=== PATIENT | female | born 1990 | race Caucasian/White ===

== ENCOUNTER → 2016-09-11 | Outpatient (CLI) | payer OTHER ==
[~2016-09-11] MED LIST: ISOVUE-370 76% 100ML VIAL (Q9967) As Ordered ONE
--- NOTE | 2016-09-11 15:05 | REP ---
Clinical: Infertility. Technique: Real time fluoroscopic images in conjunction with PRINTER ASSISTANT. Findings: Uterine contour suggests complete bicornuate uterus. The bilateral fallopian tubes are normal in appearance and patency with normal contrast extravasation into the pelvis. Total fluoroscopic time 43 seconds. Impression: Bicornuate uterus. Normal patent bilateral fallopian tubes. Signed by Nikolai Miles MD 09/11/2016 02:56 P
== END | disposition home or self-care (01) ==
LOC: M RADPRO 12:29
PROVIDERS: ATTEND Obstetrics & Gynecology
DX: Q51.3 Bicornate uterus (principal)
CPT/HCPCS: 58340; 74740; Q9967

== ENCOUNTER 2016-10-14 09:25 | Emergency (ER) | payer OTHER ==
[2016-10-14] MEDS ORDERED: ALBUTEROL 90 MCG/ACT 8GM HFA INHALER As Ordered ONE (10:58)
--- NOTE | 2016-10-14 11:00 | REP ---
TWO VIEW CHEST: COMPARISON: 03/18/2015. There is no evidence of acute infiltrate. No pleural effusion is seen. The heart is normal in size. The mediastinal silhouette is unremarkable. The visualized osseous structures are intact. IMPRESSION: No acute pulmonary disease. Signed by Rinku Black MD 10/14/2016 02:17 P
--- NOTE | 2016-10-14 12:21 | EDDOCDS ---
Nurse's Notes [facility] Name: Rosalva Jean Age: 25 yrs Sex: Female : 1990 Arrival Date: 10/14/2016 Time: 09:25 Bed TR7 Private MD: Nghia [facility] [place] Diagnosis: Acute bronchospasm-possible exercise induced asthma Presentation: 10/14 09:33 Presenting complaint: Patient states: Pt presents with feeling SOB onset yesterday dls after working out in the gym No apparent distress dry cough. Adult Sepsis Screening: The patient does not have new or worsening altered mentation. Patient's respiratory rate is less than 22. Systolic blood pressure is greater than 100. Patient has a qSOFA score of 0- Negative Sepsis Screen. Suicide/Homicide risk assessment- the patient denies having any suicidal and/or homicidal ideations and does not present with any other emotional, behavioral or mental health complaints. Status: The patient is a dependent. Transition of care: patient was not received from another setting of care. 09:33 Acuity: MENDY Level 4 dls 09:33 Method Of Arrival: Walkin/Carried/Asstd dls Triage Assessment: 09:37 General: Appears in no apparent distress, slender, well developed, well nourished, well dls groomed, Behavior is cooperative. Pain: Pain currently is 2 out of 10 on a pain scale. HIV screening NA for this visit Offered previously. 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 topiramine 100mg daily 2. Vitamin Oral tab 1 tab once daily - PMHx: Seizure Disorder; - PSHx: LEEP Procedure; Tonsillectomy; D & C; - Social history: Smoking status: Patient uses tobacco products, light tobacco smoker. No barriers to communication noted, The patient speaks fluent Egyptian. - : The pt / caregiver states he / she is not on anticoagulants. Home medication list is obtained from the patient. - Exposure Risk Screening:: None identified. Assessment: 11:00 General: Appears in no apparent distress, Behavior is cooperative. Neurological: Level mk4 of Consciousness is awake, alert. Cardiovascular: No deficits noted. Respiratory: No deficits noted. Airway is patent Respiratory effort is even, unlabored, Respiratory pattern is regular. Derm: Skin is intact, is healthy with good turgor. 12:11 General: Appears in no apparent distress, comfortable, Behavior is cooperative. mk4 Neurological: Level of Consciousness is awake, alert. Vital Signs: 09:27 BP 115 / 67; Pulse 71; Resp 18; Temp 97.6(O); Pulse Ox 100% on R/A; Weight 51.71 kg ct3 (R); Height 62 in. (157.48 cm) (R); Pain 3/10; 12:19 BP 108 / 73; Pulse 52; Resp 18; Pulse Ox 98% on R/A; mk4 09:27 Body Mass Index 20.85 (51.71 kg, 157.48 cm) ct3 Vitals: 09:27 Log In Time: October 14, 2016 at 09:25. ct3 ED Course: 09:26 Patient visited by Samira Guerrero PCA. ct3 09:26 Patient moved to Waiting ct3 09:27 Nghia [facility] [place] is Private Physician. ct3 09:28 Patient moved to Pre RCE ct3 09:35 Triage Initiated dls 09:49 Patient moved to Triage 1 kcs 10:06 Tamir Mayes PA-C is PHCP. ar2 10:06 Francisca Hamilton MD is Attending Physician. ar2 10:15 Patient visited by Tamir Mayes PA-C. ar2 10:58 D-Dimer Quant Sent. kcs 11:10 Patient moved to TR2 kcs 11:16 Chest, 2 View (pa\E\lat) Returned. EDMS 11:23 Patient name changed from Rosalva\S\Hanna\S\Tripple\S\ to Rosalva\S\Hanna\S\Chuchoisner. EDMS 11:48 [facility] Payment Agreement was scanned into [employer] and attached to record. lg 11:50 Patient moved to PR1 / 25 mk4 11:54 Patient visited by Jacque Morrissey RN. mk4 12:04 Nghia [facility] [place] is Referral Physician. ar2 12:19 Patient moved to TR7 mk4 Administered Medications: 11:06 Drug: Ventolin 2 puffs [Ventolin HFA 90 mcg/actuation aerosol inhaler (2 puffs)] Route: js11 Inhalation; RT: 11:06 Initial MDI Given. Patient was instructed and evaluated on procedure Patient tolerated js11 procedure well without adverse effect Spacer used Number of puffs given: 2. Order Results: Lab Order: D-Dimer Quant; SPEC'M 10/14/16 10:57 Test: D-DIMER QUANT; Value: 246.4; Range: <500; Units: ng/ml; Status: F Radiology Order: Chest, 2 View (pa\E\lat) Test: Chest, 2 View (pa\E\lat) REASON FOR EXAMINATION: sob; TWO VIEW CHEST:; ; COMPARISON: 03/18/2015.; ; There is no evidence of acute infiltrate.; No pleural effusion is seen.; The heart is normal in size.; The mediastinal silhouette is unremarkable.; The visualized osseous structures are intact.; ; IMPRESSION:; No acute pulmonary disease.; ; Unreviewed; Outcome: 12:05 Discharge ordered by Provider. ar2 12:20 Patient left the ED. mk4 12:20 Discharge Assessment: Patient awake, alert and oriented x 3. No cognitive and/or mk4 functional deficits noted. Patient verbalized understanding of disposition instructions. Patient awake and alert. patient administered narcotics - no. The following High Risk Discharge criteria are identified: None. Condition: good Condition: stable. No special radiology studies were completed. Property sent home with patient. Signatures: Dispatcher [employer] Kathrine Ga, RN Reema Mckeon RN RN dls Ganter, LoriLee, Dharmesh Reg lg Tamir Mayes, PAErnesto PAErnesto ar2 Samira Guerrero, PRICER PRICER ct3 Foreign Blackwell js11 Jacque Morrissey RN RN mk4 MTDD
--- NOTE | 2016-10-14 12:21 | EDDOCDS ---
Physician Documentation [facility] Name: Rosalva Jean Age: 25 yrs Sex: Female : 1990 Arrival Date: 10/14/2016 Time: 09:25 Bed TR7 Private MD: WOODY Agrawal Disposition: 10/14/16 12:05 Discharged to Home/Self Care. Impression: Acute bronchospasm - possible exercise induced asthma. - Condition is Stable. - Discharge Instructions: Asthma, Adult, Bronchospasm, Adult, Metered Dose Inhaler with Spacer. - Prescriptions for Prednisone 20 mg Oral Tablet - take 2 tablet by ORAL route once daily for 5 days; 10 tablet. - Medication Reconciliation, Local Pharmacy Hours form. - Follow up: WOODY Agrawal; When: 1 - 2 days; Reason: Recheck today's complaints. Follow up: Emergency Department; When: As needed; Reason: Trouble breathing, Worsening of conditions. - Problem is new. - Symptoms are unchanged. Historical: - Allergies: PENICILLINS; Keflex; - Home Meds: 1. topiramine 100mg daily 2. Vitamin Oral tab 1 tab once daily - PMHx: Seizure Disorder; - PSHx: LEEP Procedure; Tonsillectomy; D & C; - Social history: Smoking status: Patient uses tobacco products, light tobacco smoker. No barriers to communication noted, The patient speaks fluent Moldovan. - : The pt / caregiver states he / she is not on anticoagulants. Home medication list is obtained from the patient. - Exposure Risk Screening:: None identified. 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 (157.48 cm) (R); Pain 3/10; 12:19 BP 108 / 73; Pulse 52; Resp 18; Pulse Ox 98% on R/A; mk4 09:27 Body Mass Index 20.85 (51.71 kg, 157.48 cm) ct3 MDM: 10:25 Ventolin Inhaler 2 puffs Inhalation once ordered. ar2 10:25 MDI teaching with Spacer ordered. ar2 10:26 Chest, 2 View (pa\E\lat) Ordered. EDMS 10:26 D-Dimer Quant Ordered. EDMS 10:27 ECG WITH READING ER PHYS+CARDIAG ordered. EDMS 11:09 Financial registration complete. lg 11:48 [facility] Payment Agreement was scanned into [employer] and attached to record. lg 11:55 D-Dimer Quant Reviewed. ar2 11:55 Chest, 2 View (pa\E\lat) Reviewed. ar2 Administered Medications: 11:06 Drug: Ventolin 2 puffs [Ventolin HFA 90 mcg/actuation aerosol inhaler (2 puffs)] Route: js11 Inhalation; Signatures: Dispatcher [employer] EDMS Reema Trejo, DASIA RN dls Guido Graham, Dharmesh Reg lg Tamir Mayes PA-C PAErnesto ar2 Jacque Morrissey RN RN 4 Foreign Blackwell js11 The chart was reviewed and I authenticate all verbal orders and agree with the evaluation and treatment provided.Attachments: 11:48 [facility] Payment Agreement lg MTDD
--- NOTE | 2016-10-15 07:53 | ECGEPIP ---
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 Order Number: [id number] Reading MD: Daniela Wasserman Measurements Intervals Mittie Rate: 66 P: 74 IN: 126 QRS: 78 QRSD: 74 T: 44 QT: 413 QTc: 436 Interpretive Statements SINUS RHYTHM WITH SINUS ARRHYTHMIA NO PRIOR FOR COMPARISON Electronically Signed On 10-15-2016 7:53:24 EST by Daniela Wasserman
--- NOTE | 2016-10-16 13:20 | EDDOCDS ---
Physician Documentation [facility] Name: Rosalva Jean Age: 25 yrs Sex: Female : 1990 Arrival Date: 10/14/2016 Time: 09:25 Bed TR7 Private MD: WOODY Agrawal Disposition: 10/14/16 12:05 Discharged to Home/Self Care. Impression: Acute bronchospasm - possible exercise induced asthma. - Condition is Stable. - Discharge Instructions: Asthma, Adult, Bronchospasm, Adult, Metered Dose Inhaler with Spacer. - Prescriptions for Prednisone 20 mg Oral Tablet - take 2 tablet by ORAL route once daily for 5 days; 10 tablet. - Medication Reconciliation, Local Pharmacy Hours form. - Follow up: WOODY Agrawal; When: 1 - 2 days; Reason: Recheck today's complaints. Follow up: Emergency Department; When: As needed; Reason: Trouble breathing, Worsening of conditions. - Problem is new. - Symptoms are unchanged. Historical: - Allergies: PENICILLINS; Keflex; - Home Meds: 1. topiramine 100mg daily 2. Vitamin Oral tab 1 tab once daily - PMHx: Seizure Disorder; - PSHx: LEEP Procedure; Tonsillectomy; D & C; - Social history: Smoking status: Patient uses tobacco products, light tobacco smoker. No barriers to communication noted, The patient speaks fluent Djiboutian. - Family history: Not pertinent. - : The pt / caregiver states he / she is not on anticoagulants. Home medication list is obtained from the patient. - Exposure Risk Screening:: None identified. 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 (157.48 cm) (R); Pain 3/10; 12:19 BP 108 / 73; Pulse 52; Resp 18; Pulse Ox 98% on R/A; mk4 09:27 Body Mass Index 20.85 (51.71 kg, 157.48 cm) ct3 MDM: 10:25 Ventolin Inhaler 2 puffs Inhalation once ordered. ar2 10:25 MDI teaching with Spacer ordered. ar2 10:26 Chest, 2 View (pa\E\lat) Ordered. EDMS 10:26 D-Dimer Quant Ordered. EDMS 10:27 ECG WITH READING ER PHYS+CARDIAG ordered. EDMS 11:09 Financial registration complete. lg 11:48 [facility] Payment Agreement was scanned into [employer] and attached to record. lg 11:55 D-Dimer Quant Reviewed. ar2 11:55 Chest, 2 View (pa\E\lat) Reviewed. ar2 10/15 10:46 T-Sheet-- Draft Copy was scanned into [employer] and attached to record. gb 10:46 ECG/EKG was scanned into [employer] and attached to record. gb 10:46 Radiology Report was scanned into [employer] and attached to record. gb Administered Medications: 10/14 11:06 Drug: Ventolin 2 puffs [Ventolin HFA 90 mcg/actuation aerosol inhaler (2 puffs)] Route: js11 Inhalation; Signatures: Dispatcher [employer] EDMS Reema Trejo, RN RN dls Gladis Perez, Reg Reg gb Guido Graham, Reg Reg lg Tamir Mayes, ALEJANDRO PA-C ar2 Jacque Morrissey RN RN mk4 Foreign Blackwell js11 The chart was reviewed and I authenticate all verbal orders and agree with the evaluation and treatment provided.Attachments: 11:48 [facility] Payment Agreement lg 10/15 10:46 T-Sheet-- Draft Copy gb 10:46 ECG/EKG gb Chart Complete MTDD
--- NOTE | 2016-10-16 13:20 | EDDOCDS ---
Physician Documentation [facility] Name: Rosalva Jean Age: 25 yrs Sex: Female : 1990 Arrival Date: 10/14/2016 Time: 09:25 Bed TR7 Private MD: WOODY Agrawal Disposition: 10/14/16 12:05 Discharged to Home/Self Care. Impression: Acute bronchospasm - possible exercise induced asthma. - Condition is Stable. - Discharge Instructions: Asthma, Adult, Bronchospasm, Adult, Metered Dose Inhaler with Spacer. - Prescriptions for Prednisone 20 mg Oral Tablet - take 2 tablet by ORAL route once daily for 5 days; 10 tablet. - Medication Reconciliation, Local Pharmacy Hours form. - Follow up: WOODY Agrawal; When: 1 - 2 days; Reason: Recheck today's complaints. Follow up: Emergency Department; When: As needed; Reason: Trouble breathing, Worsening of conditions. - Problem is new. - Symptoms are unchanged. Historical: - Allergies: PENICILLINS; Keflex; - Home Meds: 1. topiramine 100mg daily 2. Vitamin Oral tab 1 tab once daily - PMHx: Seizure Disorder; - PSHx: LEEP Procedure; Tonsillectomy; D & C; - Social history: Smoking status: Patient uses tobacco products, light tobacco smoker. No barriers to communication noted, The patient speaks fluent Cape Verdean. - Family history: Not pertinent. - : The pt / caregiver states he / she is not on anticoagulants. Home medication list is obtained from the patient. - Exposure Risk Screening:: None identified. 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 (157.48 cm) (R); Pain 3/10; 12:19 BP 108 / 73; Pulse 52; Resp 18; Pulse Ox 98% on R/A; mk4 09:27 Body Mass Index 20.85 (51.71 kg, 157.48 cm) ct3 MDM: 10:25 Ventolin Inhaler 2 puffs Inhalation once ordered. ar2 10:25 MDI teaching with Spacer ordered. ar2 10:26 Chest, 2 View (pa\E\lat) Ordered. EDMS 10:26 D-Dimer Quant Ordered. EDMS 10:27 ECG WITH READING ER PHYS+CARDIAG ordered. EDMS 11:09 Financial registration complete. lg 11:48 [facility] Payment Agreement was scanned into [employer] and attached to record. lg 11:55 D-Dimer Quant Reviewed. ar2 11:55 Chest, 2 View (pa\E\lat) Reviewed. ar2 10/15 10:46 T-Sheet-- Draft Copy was scanned into [employer] and attached to record. gb 10:46 ECG/EKG was scanned into [employer] and attached to record. gb 10:46 Radiology Report was scanned into [employer] and attached to record. gb Administered Medications: 10/14 11:06 Drug: Ventolin 2 puffs [Ventolin HFA 90 mcg/actuation aerosol inhaler (2 puffs)] Route: js11 Inhalation; Signatures: Dispatcher [employer] EDMS Reema Trejo, RN RN dls Gladis Perez, Reg Reg gb Guido Graham, Reg Reg lg Tamir Mayes, ALEJANDRO PA-C ar2 Jacque Morrissey RN RN mk4 Foreign Blackwell js11 The chart was reviewed and I authenticate all verbal orders and agree with the evaluation and treatment provided.Attachments: 11:48 [facility] Payment Agreement lg 10/15 10:46 T-Sheet-- Draft Copy gb 10:46 ECG/EKG gb Chart Complete MTDD
--- NOTE | 2016-10-16 13:21 | EDDOCDS ---
Nurse's Notes [facility] Name: Ameena Macdonald Age: 25 yrs Sex: Female : 1990 Arrival Date: 10/14/2016 Time: 09:25 Bed TR7 Private MD: [place] [facility] [place]: Acute bronchospasm-possible exercise induced asthma Presentation: 10/14 09:33 Presenting complaint: Patient states: Pt presents with feeling SOB onset yesterday dls after working out in the gym No apparent distress dry cough. Adult Sepsis Screening: The patient does not have new or worsening altered mentation. Patient's respiratory rate is less than 22. Systolic blood pressure is greater than 100. Patient has a qSOFA score of 0- Negative Sepsis Screen. Suicide/Homicide risk assessment- the patient denies having any suicidal and/or homicidal ideations and does not present with any other emotional, behavioral or mental health complaints. Status: The patient is a dependent. Transition of care: patient was not received from another setting of care. 09:33 Acuity: MENDY Level 4 dls 09:33 Method Of Arrival: Walkin/Carried/Asstd dls Triage Assessment: 09:37 General: Appears in no apparent distress, slender, well developed, well nourished, well dls groomed, Behavior is cooperative. Pain: Pain currently is 2 out of 10 on a pain scale. HIV screening NA for this visit Offered previously. 12:21 Respiratory: Onset: The symptoms/episode began/occurred gradually. 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 topiramine 100mg daily 2. Vitamin Oral tab 1 tab once daily - PMHx: Seizure Disorder; - PSHx: LEEP Procedure; Tonsillectomy; D & C; - Social history: Smoking status: Patient uses tobacco products, light tobacco smoker. No barriers to communication noted, The patient speaks fluent Uzbek. - Family history: Not pertinent. - : The pt / caregiver states he / she is not on anticoagulants. Home medication list is obtained from the patient. - Exposure Risk Screening:: None identified. Screenin:20 Screening information is obtained from the patient. Fall risk: No risks identified. mk4 Assistance ADL's: requires no assistance with activities of daily living. Abuse/DV Screen: The patient / caregiver reports he/she is: not in a situation that causes fear, pain or injury. Nutritional screening: No deficits noted. Advance Directives: Currently, there is no health care proxy. There is no active DNR order. There is no living will. There is no Power of Mutual Fund Analyst. Advance directive information has not previously been placed in an [facility] medical record. home support is adequate. Assessment: 11:00 General: Appears in no apparent distress, Behavior is cooperative. Neurological: Level mk4 of Consciousness is awake, alert. Cardiovascular: No deficits noted. Respiratory: No deficits noted. Airway is patent Respiratory effort is even, unlabored, Respiratory pattern is regular. Derm: Skin is intact, is healthy with good turgor. 12:11 General: Appears in no apparent distress, comfortable, Behavior is cooperative. mk4 Neurological: Level of Consciousness is awake, alert. 12:21 Respiratory: Breath sounds are clear bilaterally. mk4 Vital Signs: 09:27 BP 115 / 67; Pulse 71; Resp 18; Temp 97.6(O); Pulse Ox 100% on R/A; Weight 51.71 kg ct3 (R); Height 62 in. (157.48 cm) (R); Pain 3/10; 12:19 BP 108 / 73; Pulse 52; Resp 18; Pulse Ox 98% on R/A; mk4 09:27 Body Mass Index 20.85 (51.71 kg, 157.48 cm) ct3 Vitals: 09:27 Log In Time: October 14, 2016 at 09:25. ct3 ED Course: 09:26 Patient visited by Samira Guerrero PCA. ct3 09:26 Patient moved to Waiting ct3 09:27 [place] [facility] Phys[place]. ct3 09:28 Patient moved to Pre RCE ct3 09:35 Triage Initiated dls 09:49 Patient moved to Triage 1 kcs 10:06 Andrea Varela PA-C is PHCP. ar2 10:06 Francisca Hamilton MD is Attending Physician. ar2 10:15 Patient visited by Andrea Varela PA-C. ar2 10:58 D-Dimer Quant Sent. kcs 11:10 Patient moved to TR2 kcs 11:16 Chest, 2 View (pa\E\lat) Returned. EDMS 11:23 Patient name changed from Ameena\S\Hanna\S\Tripple\S\ to Ameena\S\Hanna\S\Miranda. EDMS 11:48 [facility] [place] Agreement was scanned into [employer] and attached to record. lg 11:50 Patient moved to PR1 / 25 mk4 11:54 Patient visited by Jacque Morrissey RN. mk4 12:04 [place] [facility] [place] Physician. ar2 12:19 Patient moved to TR7 mk4 12:20 The patient / caregiver is instructed regarding the plan of care and ED course. mk4 12:20 No IV's were initiated during this patient's visit. No procedures done that require [facility] assistance. 14:22 Chest, 2 View (pa\E\lat) Returned. EDMS 0214 08:04 EKG-ADULT Returned. EDMS 10:46 T-Sheet-- Draft Copy was scanned into [employer] and attached to record. gb 10:46 ECG/EKG was scanned into [employer] and attached to record. gb 10:46 Radiology Report was scanned into [employer] and attached to record. gb Administered Medications: 10/14 11:06 Drug: Ventolin 2 puffs [Ventolin HFA 90 mcg/actuation aerosol inhaler (2 puffs)] Route: js11 Inhalation; RT: 11:06 Initial MDI Given. Patient was instructed and evaluated on procedure Patient tolerated js11 procedure well without adverse effect Spacer used Number of puffs given: 2. Order Results: Lab Order: D-Dimer Quant; SPEC'M 10/14/16 10:57 Test: D-DIMER QUANT; Value: 246.4; Range: <500; Units: ng/ml; Status: F Radiology Order: Chest, 2 View (pa\E\lat) Test: Chest, 2 View (pa\E\lat) REASON FOR EXAMINATION: sob; TWO VIEW CHEST:; ; COMPARISON: 03/18/2015.; ; There is no evidence of acute infiltrate.; ; No pleural effusion is seen.; ; The heart is normal in size.; ; The mediastinal silhouette is unremarkable.; ; The visualized osseous structures are intact.; ; IMPRESSION:; ; No acute pulmonary disease.; ; ; Signed by; Rinku Black MD 10/14/2016 02:17 P; Radiology Order: EKG-ADULT Test: EKG-ADULT REASON FOR EXAMINATION: sob; Stationary ECG Study; [facility] - ED; ; Test Date: 2016-10-14; Pat Name: AMEENA MACDONALD Department:; Room: -; 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 ar2 12:20 Patient left the ED. mk4 12:20 Discharge Assessment: Patient awake, alert and oriented x 3. No cognitive and/or mk4 functional deficits noted. Patient verbalized understanding of disposition instructions. Patient awake and alert. patient administered narcotics - no. The following High Risk Discharge criteria are identified: None. Condition: good Condition: stable. No special radiology studies were completed. Property sent home with patient. Signatures: Dispatcher [employer] EDKathrine Cervantes, RN Reema Mckeon RN RN dls Gladis Perez, Reg Reg gb Guido Graham, Reg Reg lg Andrea Varela PA-C PA-C ar2 Samira Guerrero, HAND SCRAPER HAND SCRAPER ct3 Foreign Blackwell js Jacque Morrissey RN RN mk4 Chart Complete MTDD
== END 2016-10-14 12:20 | disposition home or self-care (01) ==
LOC: M ED 09:25
DX: J98.01 Acute bronchospasm (principal); G40.909 Epilepsy, unspecified, not intractable, without status epilepticus; Z79.899 Other long term (current) drug therapy; Z88.0 Allergy status to penicillin; Z88.1 Allergy status to other antibiotic agents; F17.210 Nicotine dependence, cigarettes, uncomplicated

== ENCOUNTER 2016-12-10 11:12 | Emergency (ER) | payer OTHER, SELFPAY ==
[~2016-12-10] VITALS: Ht 157.5 cm; Wt 53.5 kg
[2016-12-10] MEDS ORDERED: VITA125C2 PO (11:25)
[2016-12-10] MEDS ORDERED: PRENTAB55 PO (11:25)
[2016-12-10 12:33] LABS: BASO % 0.5 % (0.0-1.0); EOS # 0.1 K/mm3 (0.0-0.50); EOS % 1.6 % (0.0-3.0); LARGE UNSTAINED CELL # 0.1 K/mm3 (0.0-0.4); LARGE UNSTAINED CELL % 1.2 % (0.0-4.0); LYMPH # 1.7 K/mm3 (1.5-6.5); MEAN CORPUSCULAR HEMOGLOBIN 30.3 pg (27.0-33.0); MEAN CORPUSCULAR HGB CONC 35.2 g/dl (32.0-36.5); MEAN CORPUSCULAR VOLUME 86.2 fl (80.0-96.0); MONO # 0.4 K/mm3 (0.0-0.8); MONO % 4.4 % (0.0-5.0); NEUTROPHILS # 5.8 K/mm3 (1.8-7.7); NEUTROPHILS % 72.3 % (36.0-66.0); PLATELET COUNT, AUTOMATED 220 k/mm3 (150-450); RED CELL DISTRIBUTION WIDTH 12.3 % (11.5-14.5)
[2016-12-10 14:25] VITALS: BP 122/73
--- NOTE | 2016-12-10 15:25 | REP ---
FIRST TRIMESTER ULTRASOUND: Real-time sonographic evaluation of the pelvis performed utilizing transabdominal and endovaginal technique. The uterus measures 8.3 x 4.7 x 6.4 cm. The uterus is bicornuate/septate. Saclike structure in the left endometrial canal has a mean sac diameter of 3 mm which would correspond to an estimated gestational age of 5 weeks 0 days. No yolk sac or pole is seen. Right ovary measures 3.1 x 1.7 x 1.7 cm and left ovary 3.2 x 2.5 x 3.5 cm. There appears to be a small complex cystic structure in the left ovary 1.5 x 1.1 x 1.1 cm, probably representing a complex corpus luteum. There is no other evidence of adnexal mass or free fluid. Blood flow is seen in each ovary with duplex Doppler evaluation, with no torsion, RI right ovary 0.40 and left ovary 0.52. IMPRESSION: Saclike structure in the endometrial canal, diameter of 3 mm. May represent a very early intrauterine gestation of 5 weeks gestational age. No yolk sac or pole is seen. No suspicious adnexal mass or free fluid. Differential diagnosis would also include missed AB or ectopic . Suggest correlation with serial quantitative beta hCG values. Followup ultrasound may be obtained as clinically indicated. Signed by Rinku Black MD 12/10/2016 04:24 P
== END 2016-12-10 14:35 | disposition home or self-care (01) ==
LOC: M ED 13:21
DX: O20.0 Threatened abortion (principal); Z3A.01 Less than 8 weeks gestation of pregnancy

== ENCOUNTER → 2016-12-12 | Outpatient (CLI) | payer OTHER ==
[~2016-12-12] MED LIST changes: -ISOVUE-370 76% 100ML VIAL (Q9967) As Ordered ONE; +PRENTAB55 PO; +VITA125C2 PO
== END ==
LOC: M LAB 11:47
PROVIDERS: ATTEND Physician Assistant Surgical
DX: O46.91 Antepartum hemorrhage, unspecified, first trimester (principal)